=== PATIENT | female | born 1960 | race Caucasian/White ===

== ENCOUNTER 2017-05-10 08:26 | Day surgery (SDC) | payer OTHER ==
[~2017-05-10] VITALS: Ht 175.3 cm; Wt 59.9 kg
[~2017-05-10 08:26] MED LIST: ASPIRIN EC81 MG PO; CELEXA40 MG PO; CHLORTABS4 MG PO; DIPHENOXYLATE-1 EACH PO; FLUTICASONE P15.8 ML NAS; LISINOPRIL10 MG PO; LORATADINE10 MG PO; MECLIZINE HCL25 MG PO; OMEPRAZOLE20 MG PO; PANTOPRAZOLE SO20 MG PO; QVAR8.7 G1 INH; TRAZODONE HCL100 MG PO; VITAMIN D32000 UNIT PO
[2017-05-10] MEDS ORDERED: NEURONTIN300 MG PO (08:48)
--- NOTE | 2017-05-10 10:31 | NUR ---
05/10/17 1031 Merry Easley 1027-PATIENT ARRIVED TO PACU ON 3L NC O2 SAT 100% ABDOMEN SOFT. PATIENT REACTIVE OPENS EYES.
--- NOTE | 2017-05-18 18:42 | OR ---
[facility] [address] [place], [place] [address] Signed DATE OF OPERATION: 05/10/2017 SURGEON: Mary Chavira MD PREOPERATIVE DIAGNOSES: 1. Personal history of colonic polyps. 2. Two maternal uncles with colon cancer. 3. First cousin with colon polyps. 4. Change in bowel habits with incomplete rectal evacuation. 5. Rectal bleeding with pruritus ani. 6. Constipation and diarrhea. POSTOPERATIVE DIAGNOSES: 1. 7 mm polypoid lesion at 42 cm (tattoo). 2. Minimal internal hemorrhoids. 3. Long redundant left colon. PROCEDURE: Colonoscopy with hot biopsy and injection of tattoo at 42 cm. ESTIMATED BLOOD LOSS: None. INDICATIONS: Ju is a 56-year-old female asked to see me for a followup colonoscopy. She has a personal history of colonic polyps along with a first cousin, who had colonic polyps. Two maternal uncles have also had colon cancer. More recently, she had a change in bowel habits and she feels like she has incomplete rectal evacuation with her bowel movements. She has mentioned some intermittent rectal bleeding and some pruritus ani. She also has a long history of alternating constipation and diarrhea. In the office, I gave her a pamphlet on colonoscopy and we looked at that together along with the risks including, but not limited to gas, bloating, crampy abdominal pain, bleeding, perforation requiring surgery, and missed diagnosis. We also discussed the need for IV conscious sedation. She has done well in the past with Versed and fentanyl. She had expressed understanding and wished to proceed. PROCEDURE NOTE: Ju was taken into our endoscopy suite and placed in the left lateral decubitus position. She was given divided doses of 7 mg of Versed and 150 mcg of fentanyl during the procedure. She also has a long redundant left colon and she was under some distress Electronically Signed By: MARY CHAVIRA MD 05/18/17 2461 PATIENT NAME: JU QUIROGA OPERATIVE REPORT DATE OF : 58 PHYSICIAN: MARY CHAVIRA MD REPORT #: [id number] REPORT IS CONFIDENTIAL AND NOT TO BE RELEASED WITHOUT AUTHORIZATION [facility] [address] [place], [place] [address] Signed as we advanced the camera and we continued to give additional doses of the Versed and fentanyl along with abdominal compression. If she has any recall of that, she probably should strongly consider propofol in the future. Once she was sedated, a digital rectal exam was performed and this was unremarkable. The adult colonoscope had been introduced and advanced as above. We eventually made it through a long, redundant, somewhat narrow left colon and it took just a minute to get past the splenic flexure around the hepatic flexure and down into the cecum itself. Her prep was good. The scope was slowly withdrawn. We found a polypoid lesion back at 42 cm. We went ahead biopsied and destroyed that completely with our hot biopsy forceps. We injected a tattoo next to it since this is a sessile lesion and it was a little concerning. The rectum itself was unremarkable. Upon retroflexion of scope, she has minimal internal hemorrhoid tissue. It looks like she has 2 tiny internal anal skin tags as well. After this, the gas was suctioned out and the colonoscope removed. Overall, Ju tolerated the procedure well. RECOMMENDATIONS: I will see Ju back in my office in 7 to 14 days to review her results. MD CHAU Pedroza/ADRIANL /[id number] cc: Ralph Tabor MD Electronically Signed By: MARY CHAVIRA MD 05/18/17 1842 PATIENT NAME: JU QUIROGA OPERATIVE REPORT DATE OF : 58 PHYSICIAN: MARY CHAVIRA MD REPORT #: [id number] REPORT IS CONFIDENTIAL AND NOT TO BE RELEASED WITHOUT AUTHORIZATION
== END 2017-05-10 11:15 | disposition home or self-care (01) ==
LOC: OPS 08:26 → DS 08:26 → OPS 09:00
PROVIDERS: Colon & Rectal Surgery
PROC: 3E0H8GC Introduction of Other Therapeutic Substance into Lower GI, Via Natural or Artificial Opening Endoscopic (ICD-10-PCS; 2017-05-10)
PROC: 0DBL8ZX Excision of Transverse Colon, Via Natural or Artificial Opening Endoscopic, Diagnostic (ICD-10-PCS; principal; 2017-05-10 09:45)
DX: K63.5 Polyp of colon (principal); K64.8 Other hemorrhoids; I10 Essential (primary) hypertension; J44.9 Chronic obstructive pulmonary disease, unspecified; M19.90 Unspecified osteoarthritis, unspecified site; F32.9 Major depressive disorder, single episode, unspecified; F41.9 Anxiety disorder, unspecified; F17.210 Nicotine dependence, cigarettes, uncomplicated; Z87.442 Personal history of urinary calculi; Z86.19 Personal history of other infectious and parasitic diseases; Z86.010 Personal history of colon polyps; Z80.0 Family history of malignant neoplasm of digestive organs; Z90.710 Acquired absence of both cervix and uterus; Z79.82 Long term (current) use of aspirin; Z79.899 Other long term (current) drug therapy; Z98.890 Other specified postprocedural states
CPT/HCPCS: 99153; G0500; J2250; J3010; J7120

== ENCOUNTER 2021-02-25 15:41 | Emergency (ER) | payer OTHER ==
[~2021-02-25] VITALS: Ht 175.3 cm; Wt 61.2 kg
[~2021-02-25 15:41] MED LIST changes: +NEURONTIN300 MG PO
[2021-02-25] MEDS ORDERED: ASPIRIN81 MG PO (18:05)
[2021-02-25] MEDS ORDERED: VENTOLIN HFA18 GM INH (18:05)
[2021-02-25] MEDS ORDERED: ALLEGRA-D 12 H1 EACH PO (18:05)
== END 2021-02-25 18:47 | disposition home or self-care (01) ==
LOC: ED 15:41
DX: S01.01XA Laceration without foreign body of scalp, initial encounter (principal); J44.9 Chronic obstructive pulmonary disease, unspecified; F17.200 Nicotine dependence, unspecified, uncomplicated; W01.190A Fall on same level from slipping, tripping and stumbling with subsequent striking against furniture, initial encounter; Z91.041 Radiographic dye allergy status; Z88.2 Allergy status to sulfonamides; Z79.82 Long term (current) use of aspirin; Z79.899 Other long term (current) drug therapy
CPT/HCPCS: 99282

== ENCOUNTER 2021-09-07 15:35 | Emergency (ER) | payer OTHER ==
[~2021-09-07] VITALS: Ht 175.3 cm; Wt 59.0 kg
[~2021-09-07 15:35] MED LIST changes: +ALLEGRA-D 12 H1 EACH PO; +ASPIRIN81 MG PO; +VENTOLIN HFA18 GM INH
--- NOTE | 2021-09-07 19:27 | EKG ---
[facility] [address] [facility] [place], [place] [address] Signed Normal sinus rhythm Normal ECG No previous ECGs available Confirmed by TOMMIE FOWLER MD ([id number]) on 09/07/2021 7:26:51 PM Electronically Signed By: TOMMIE FOWLER MD 09/07/211926 PATIENT NAME: LG QUIROGA Electrocardiogram DATE OF : 58 PHYSICIAN: TOMMIE FOWLER MD REPORT #: [id number] REPORT IS CONFIDENTIAL AND NOT TO BE RELEASED WITHOUT AUTHORIZATION
== END 2021-09-07 18:06 | disposition left against medical advice (07) ==
LOC: ED 15:35
DX: Z53.21 Procedure and treatment not carried out due to patient leaving prior to being seen by health care provider (principal)
CPT/HCPCS: 93005; 93010

== ENCOUNTER 2022-06-18 05:48 | Day surgery (SDC) | payer BC ==
[~2022-06-18] VITALS: Ht 175.3 cm; Wt 59.1 kg
--- NOTE | 2022-06-18 07:57 | NUR ---
06/18/22 0757 Meenakshi Boyd 0750- PT ARRIVES TO PACU NONAROUSABLE TO STIMULI WITH AN OPA IN PLACE. RESP EVEN AND UNLABORED. OXYGEN SAT 100% ON 10L VIA MASK. 0751- PT GRIMACING AND COUGHING. OPA REMOVED. OXYGEN MASK REPLACED. OXYGEN TITRATED DOWN TO 6L. PT IS SHAKING AND STATES HER ABD IS CRAMPING. PT ENCOURAGED TO PASS FLATUS. 0756- PT PROVIDED WARM BLANKETS SHE IS SHAKING AND IS UNSURE IF SHE IS COLD.
--- NOTE | 2022-06-18 09:02 | OR ---
[facility] [address] [place], [place] [address] Signed DATE OF OPERATION: 06/18/2022 SURGEON: Mary Floyd MD PREOPERATIVE DIAGNOSES: 1. Irritable bowel syndrome with diarrhea. 2. Maternal uncles x2 with colon cancer. 3. First cousin with colon polyps. 4. Personal history of colonic polyps starting in 1996 at the age of 35. 5. A tattoo at 42 cm. 6. Internal hemorrhoids. 7. Long redundant colon. POSTOPERATIVE DIAGNOSES: 1. A tattoo at 42 cm. 2. Minimal internal hemorrhoids. 3. Long redundant left colon. 4. 4 mm polyps at hepatic flexure, proximal transverse colon, 18 cm (sigmoid colon) and 12 cm (rectum). PROCEDURE: Colonoscopy with hot biopsy. ESTIMATED BLOOD LOSS: None. INDICATIONS: Ju is a 61-year-old female, asked to see me for followup colonoscopy. She has a longstanding history of irritable bowel syndrome as well as a family history of colon cancer and polyps. She has a personal history of colonic polyps dating back to age 35. She has had a tattoo at 42 cm. We know she has internal hemorrhoids. She has a long redundant colon as well. She had generally done well in the past with Versed and fentanyl. However, this last time it was quite painful and we therefore asked for monitored anesthesia care plus she has some additional medical issues including her COPD. It turned out to be a much better experience for Ju today. Indeed, she does have a long redundant left colon and it is very difficult from a technical standpoint. In the office, we had met and gone over this in great detail. She understands the nature of colonoscopy. There is risk including, but not limited to gas bloating, crampy abdominal pain, bleeding, perforation requiring surgery, and missed diagnosis. She had expressed understanding and wished to proceed. Electronically Signed By: MARY FLOYD MD 06/18/22 0902 PATIENT NAME: JU QUIROGA OPERATIVE REPORT DATE OF : 58 REPORT #: [id number] PHYSICIAN: MARY FLOYD MD [facility] REPORT IS CONFIDENTIAL AND NOT TO BE RELEASED WITHOUT AUTHORIZATION [facility] [address] [place], [place] [address] Signed PROCEDURE NOTE: Ju was taken into our endoscopy suite and placed in the left lateral decubitus position. She was given monitored anesthesia care with propofol per our nurse lining layer. A digital rectal exam was performed and this was unremarkable. There were no external hemorrhoids. She had good sphincter tone. There were no masses. The adult colonoscope was introduced and advanced under direct visualization of the camera. We had to use some additional propofol and abdominal compression in order to get the scope carefully and slowly up through the left colon. She certainly has a long redundant left colon. Once we got down the transverse colon around hepatic flexure, we were into the cecum quite quickly. Her prep was quite excellent as always. We could easily see the appendiceal orifice and the ileocecal valve. We withdrawn the camera. We taken several pictures throughout for photodocumentation. Our printer was giving us trouble today and we only had the last three pictures. The above-mentioned polyps were easily removed with the help of hot biopsy forceps. No polyp measured over 4 mm. Again, we came back to a very long redundant left colon. Once in the rectum, the scope had been retroflexed and she has very minimal internal hemorrhoid tissue and a tiny internal anal skin tag. After this, the gas was suctioned out and the colonoscope removed. Ju tolerated the procedure much better with the help of the propofol infusion. RECOMMENDATIONS: I will see Ju back in my office in 7 to 14 days to review her results. I suspect she will stay on the five year plan. She will always need monitored anesthesia care with propofol infusion. Mary Floyd MD [facility] /[id number] cc: Mary Floyd MD [facility] Electronically Signed By: MARY FLOYD MD 06/18/22901 PATIENT NAME: JU QUIROGA OPERATIVE REPORT DATE OF : 58 REPORT #: [id number] PHYSICIAN: MARY FLOYD MD PCP: [facility] REPORT IS CONFIDENTIAL AND NOT TO BE RELEASED WITHOUT AUTHORIZATION [facility] [address] [place] [address] [place] [address] Signed Copies: MARY FLOYD MD ~ Electronically Signed By: MARY FLOYD MD 06/18/22 0902 PATIENT NAME: JU QUIROGA OPERATIVE REPORT DATE OF : 58 REPORT #: [id number] PHYSICIAN: MARY FLOYD MD PCP: [facility] REPORT IS CONFIDENTIAL AND NOT TO BE RELEASED WITHOUT AUTHORIZATION
--- NOTE | 2022-06-22 14:59 | PATH ---
[facility] [address] [facility] [place], [place] [address] Signed SPECIMEN(S): A HEPATIC FLEXURE POLYP SPECIMEN(S): B PROXIMAL/TRANSVERSE COLON POLYP SPECIMEN(S): C SIGMOID POLYP AT 18 CM SPECIMEN(S): D RECTAL POLYP AT 12 CM SPECIMEN SOURCE: A. HEPATIC FLEXURE POLYP B. PROXIMAL/TRANSVERSE COLON POLYP C. SIGMOID POLYP AT 18 CM D. RECTAL POLYP AT 12 CM CLINICAL HISTORY: Preop: History of polyps; family history of colon cancer; hemorrhoids. Postop: Polyps FINAL PATHOLOGIC DIAGNOSIS: A. Hepatic flexure polyp: - Tubular adenoma (three fragments). B. Proximal / transverse colon polyp: - Tubular adenoma (one fragment). C. Sigmoid polyp at 18 cm: - Inflammatory polyp (one fragment). D. Rectal polyp at 12 cm: - Inflamed hyperplastic polyp (one fragment). JVR:[facility]:C2NR MICROSCOPIC EXAMINATION: Histologic sections of all submitted blocks are examined by light microscopy. These findings, together with the gross examination, support the pathologic diagnosis. GROSS DESCRIPTION: A. The specimen, labeled and designated "Juve, Carmen, 1." and designated on the requisition "hepatic flexure colon polyp," is received in formalin and consists of three hernandez soft tissue fragments that measure 0.3 to 0.4 cm in greatest dimension. The specimen is entirely submitted in (A1). B. The specimen, labeled and designated "Juve, K, " and designated on the requisition "proximal transverse colon polyp," is received in formalin and consists of one hernandez soft tissue fragment that is 0.4 cm in greatest dimension. The specimen is entirely submitted in (B1). PATIENT NAME: LG QUIROGA PATHOLOGY DATE OF : 58 REPORT #: [id number] PHYSICIAN: JANETTE PERRY PCP: [facility] REPORT IS CONFIDENTIAL AND NOT TO BE RELEASED WITHOUT AUTHORIZATION [facility] [address] [place], [place] [address] Signed C. The specimen, labeled and designated "Carmen Quiroga, " and designated on the requisition "sigmoid colon polypectomy at 18 cm," is received in formalin and consists of one hernandez soft tissue fragment that is 0.3 cm in greatest dimension. The specimen is entirely submitted in (C1). D. The specimen, labeled and designated "Carmen Quiroga, " and designated on the requisition "rectal polyp at 12 cm," is received in formalin and consists of one hernandez soft tissue fragment that is 0.2 cm in greatest dimension. The specimen is entirely submitted in (D1). FB (under the direct supervision of a pathologist) The Gross Description was prepared using a voice recognition system. The report was reviewed for accuracy; however, sound-alike word errors, addition and/or deletions may occur. If there is any question about this report, please contact Client Services. PERFORMING LABORATORY: The technical component was performed by [facility], [address] [place] [id number] (CLIA# [id number]). Professional interpretation was performed by [facility], [address] [place] [id number] (CLIA#: [id number]). Diagnostician: Guilherme Tee MD Pathologist Electronically Signed 06/22/2022 Copies: ~ PATIENT NAME: HEBER QUIROGAKeith FAUST PATHOLOGY DATE OF : 58 REPORT #: [id number] PHYSICIAN: JANETTE PERRY PCP: [facility] REPORT IS CONFIDENTIAL AND NOT TO BE RELEASED WITHOUT AUTHORIZATION
== END 2022-06-18 08:45 | disposition home or self-care (01) ==
LOC: DS 05:48
PROVIDERS: ATTEND Colon & Rectal Surgery
PROC: 0DBL8ZZ Excision of Transverse Colon, Via Natural or Artificial Opening Endoscopic (ICD-10-PCS; principal; 2022-06-18 07:30)
DX: D12.3 Benign neoplasm of transverse colon (principal); D12.5 Benign neoplasm of sigmoid colon; K58.0 Irritable bowel syndrome with diarrhea; K64.8 Other hemorrhoids; Z86.010 Personal history of colon polyps; Z80.0 Family history of malignant neoplasm of digestive organs; J44.9 Chronic obstructive pulmonary disease, unspecified
CPT/HCPCS: 00811; J2704; J7121

== ENCOUNTER 2022-09-15 11:51 | Emergency (ER) | payer BC ==
[~2022-09-15] VITALS: Ht 175.3 cm; Wt 59.0 kg
[2022-09-15 12:51] VITALS: BP 133/58
[2022-09-15] MEDS ORDERED: PROTONIX40 MG PO (12:51)
--- NOTE | 2022-09-15 19:10 | EKG ---
[facility] [address] [place], [place] [address] Signed Sinus bradycardia Otherwise normal ECG When compared with ECG of 10-JUN-2022 10:58, No significant change was found Confirmed by TOMMIE FOWLER MD ([id number]) on 09/15/2022 7:09:53 PM Electronically Signed By: TOMMIE FOWLER MD 09/15/221909 PATIENT NAME: LG QUIROGA Electrocardiogram DATE OF : 58 PHYSICIAN: TOMMIE FOWLER MD REPORT #: [id number] REPORT IS CONFIDENTIAL AND NOT TO BE RELEASED WITHOUT AUTHORIZATION
== END 2022-09-15 12:56 | disposition home or self-care (01) ==
LOC: ED 11:51
DX: K21.9 Gastro-esophageal reflux disease without esophagitis (principal); J44.9 Chronic obstructive pulmonary disease, unspecified; F17.200 Nicotine dependence, unspecified, uncomplicated; Z88.1 Allergy status to other antibiotic agents; Z88.8 Allergy status to other drugs, medicaments and biological substances; Z88.2 Allergy status to sulfonamides; Z79.899 Other long term (current) drug therapy; Z79.82 Long term (current) use of aspirin
CPT/HCPCS: 36415; 71045; 80053; 84484; 85025; 93005; 93010; 99285-25; 99406